=== PATIENT | female | born 1975 | race Caucasian/White ===

== ENCOUNTER 2018-08-01 13:09 | Emergency (ER) | payer SELFPAY ==
[2018-08-01 13:09] VITALS: BP 215/129; PULSE 86; RESP 18; TEMP 36.3; O2SAT 97; BMI 49.4
[2018-08-01 14:46] VITALS: BP 212/108; PULSE 82; RESP 18; O2SAT 98
--- NOTE | 2018-08-01 14:49 | EKG12_ITS ---
Test Reason : HTN Blood Pressure : / mmHG Vent. Rate : 086 BPM Atrial Rate : 086 BPM P-R Int : 152 ms QRS Dur : 096 ms QT Int : 388 ms P-R-T Axes : 041 027 059 degrees QTc Int : 464 ms Normal sinus rhythm Normal ECG Confirmed by SUSAN RIVAS ([id number]), manuscript editor NIDA ROA ([id number]) on 08/03/2018 10:55:00 AM Referred By: MELINDA Confirmed By:SUSAN RIVAS
--- NOTE | 2018-08-01 14:50 | ED.VIS.GEN ---
History of Present Illness Chief Complaint: Hypertension Informant: Patient Onset: Month(s) Timing: Continuous Quality: High blood pressure with intermittent headache Location: Global Current Severity: Moderate - Blood pressure is elevated. Headache has resolved. Maximum Severity: Moderate Worsened by: Inability to purchase medication Relieved by: Nothing Associated Symptoms: Intermittent headache and nocturia Narrative: Patient is a 42-year-old woman who has not seen a physician in 1.5 years. She presents because of headache this morning. She went to the urgent care and her blood pressure was elevated. She has not taken any medication for greater than 1 year. She reports history of hypertension and borderline diabetes . She denies headache presently. She denies blurred vision, loss of vision or change in vision. She denies ringing or ears, decreased hearing or ear pain. She denies problems with speech or swallowing. She denies chest pain, dyspnea, dyspnea exertion, orthopnea or PND. She denies nausea, vomiting diarrhea. She denies paresthesia, anesthesia or motor weakness. She denies problems with balance or walking. - Past Medical History (1) History of hypertension Status: Acute (2) History of diabetes mellitus Status: Acute Past Medical History - Allergies and Home Meds Allergies/Adverse Reactions: Allergies No Known Allergies Allergy (Verified 08/01/18 13:11) Primary Care Physician: Care Physician,No Primary [Primary Care Provider] - Prior records reviewed: No Surgical History: noncontributory Lives: Alone Smoking Status: Former smoker Alcohol: None Drugs: None Review of Systems General: Denies: Chills, Fever, Malaise, Subjective, Sweats Eyes: Denies: Visual changes - bilaterally, Diplopia ENT: Denies: Bilateral ear pain, Rhinorrhea, Sore throat Cardiovascular: Denies: Chest pain, Palpitations Respiratory: Denies: Dyspnea, Cough, Dyspnea on exertion Gastrointestinal: Denies: Abdominal pain, Nausea, Vomiting, Diarrhea, Melena, Hematochezia Genitourinary: Reports: - - Patient reports nocturia. Denies: Dysuria, Hematuria, Frequency, - Musculoskeletal: Denies: Back pain, Extremity Pain Skin: Denies: Rash, Wounds Neurological: Reports: Headache. Denies: Weakness, Parasthesia, Numbness, -, - Endocrine: Denies: Polyuria, Polydipsia Hematologic: Denies: Easy bruising, Easy bleeding Allergy: Denies: Uticaria Physical Exam Vital Signs/Narrative: Vital Signs Temp Pulse Resp BP Pulse Ox 08/01/18 14:46 82 18 212/108 H 98 08/01/18 13:09 97.3 F L 86 18 215/129 H 97 Inital Vital Signs reviewed: Yes General: Well nourished, Well developed, Obese, No Acute Distress Head: Normocephalic, Atraumatic Eyes: Perrl, EOMI. Negative for: Pale conjunctiva, Scleral icterus, - - Funduscopic exam reveals normal cup-to-disc ratio. Unable to determine if she has papilledema. There are changes with AV nicking consistent with uncontrolled hypertension. ENT: Moist mucous membranes, No rhinorrhea Neck: Supple, Nontender Cardiovascular: Regular rate, Regular rhythm, No murmurs, Normal S1, Normal S2 Respiratory: No distress, CTA bilaterally, Chest nontender Abdomen: Soft, Nontender, Nondistended, Normal bowel sounds, No masses Back: Nontender, Normal Inspection. Negative for: CVA tenderness Extremities: Nontender, No edema Skin: Normal color, No rash Neurological: Alert, Oriented x3, Cranial nerves II-XII grossly intact, Normal Strength, Normal Sensation, Normal Gait Psychological: Normal affect, Normal Mood Diagnostic/Tx/Re-eval Laboratory Results 08/01/18 08/01/18 08/01/18 15:04 15:04 15:27 WBC 8.8 RBC 4.69 Hgb 14.0 Hct 42.4 MCV 90.4 MCH 29.9 MCHC 33.0 RDW 13.1 RDW Differential 42.5 Plt Count 260 MPV 10.2 Immature Gran % (Auto) 0.200 Neut % (Auto) 64.2 Lymph % (Auto) 26.8 Starke % (Auto) 6.7 Eos % (Auto) 1.6 Baso % (Auto) 0.5 Absolute Neuts (auto) 5.6 Absolute Lymphs (auto) 2.35 Total Counted Not Reportable Sodium 137 Potassium 3.8 Chloride 107 Carbon Dioxide 28.0 Anion Gap 2 L BUN 9 Creatinine 0.80 Estim Creat Clear Calc 94.76 Est GFR (MDRD) Af Amer 101 Est GFR (MDRD) Non-Af 83 BUN/Creatinine Ratio 11.3 Glucose 175 H Calcium 8.4 L Urine Color Yellow Urine Clarity Clear Urine pH 5.0 Ur Specific [place] 1.025 Urine Protein 30 H Urine Glucose (UA) Normal Urine Ketones 5 H Urine Occult Blood 50 H Urine Nitrite Negative Urine Bilirubin Negative Urine Urobilinogen 1 H Ur Leukocyte Esterase 25 H - Rhythm Strip Rhythm Strip: Sinus Rhythm Rate: 82 Ectopy: None - EKG Initial EKG Interpretation: Sinus Rhythm - Ventricular rate is 86. OK interval, Q jew, QT interval and axis are normal. The EKG is normal. - Medical Decision Making Patient with markedly elevated blood pressure secondary to inability to obtain medication. She is presently asymptomatic. Will treat with oral meds to lower blood pressure by 10-15%. Since there are funduscopic changes consistent with uncontrolled hypertension will obtain EKG, appropriate blood work and urinalysis to assess for endorgan injury. EKG was obtained to assess for hypertrophy which would be evidence of endorgan injury. Blood pressure at 1550 is 190/104. This is approximately a 10% decline. There is evidence of endorgan injury. Blood sugar is elevated 175. Plan is to discharge with prescription for a blood pressure and elevated blood sugar. Since patient is not have a doctor and is insured Dr. Herrera was contacted to assure follow-up. ED Disposition - Plan for ED Patient: Disposition: Home or Assisted Living Diagnosis: Accelerated essential hypertension, New onset type 2 diabetes mellitus Instructions: ED Hypertension New Begin Tx Prescriptions: Lisinopril/Hydrochlorothiazide [Lisinopril-Hctz 10-12.5 mg Tab] 1 each PO DAILY #30 tablet Metformin HCl 500 mg PO DAILY #30 tablet Referrals: Care Physician,No Primary [Primary Care Provider] - Magdalena Wright DO [STAFF PHYSICIAN] - 1 Week Additional Instructions: Your prescription was sent to [facility] pharmacy located in [place] your designated pharmacy of choice.
--- NOTE | 2018-08-01 15:08 | CASEMGMT ---
Case Management Progress Note: This jingle writer informed by primary nurse that patient has H/o HTN and presents to ED with Elevated BP, lost her job and has not taken her BP medication for one year, asking for CM medication assistance. CM introduced self to patient and patient agreed to discuss issue. States that her and her boyfriend had both lost their jobs at the same time and did not have medical coverage. 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 CM did provide patient Medication Coupon Cards and explained how they work. Patient denies living in [facility] and therefore would not qualify for [employer] or [facility], CM also educated patient on if ever needing assistance can try [employer] to see if they assist. Primary nurse at bedside and aware of discussion, no other needs identified at this time. Marah Foster RNCM
[2018-08-01 15:19] LABS: Absolute Lymphocyte Count 2.35 X10^3/ul (0.83-4.51); Absolute Neutrophil Count 5.6 X10^3/uL (2.0-7.7); Basophil# 0.04 X10^3/uL; Basophil% 0.5 % (0-1); Eosinophil# 0.14 X10^3/uL; Eosinophils% 1.6 % (0-5); Hematocrit 42.4 % (37-47); Lymphocyte # 2.35 X10^3/ul (4.0); Lymphocyte % 26.8 % (19-41); Mean Corpuscular Hgb 29.9 pg (27.0-32.0); Mean Corpuscular Volume 90.4 fL (81-99); Mean Platelet Vol. 10.2 fl (6.2-12.0); Monocyte# 0.59 X10^3/uL; Monocyte% 6.7 % (0-10); Neutrophil # 5.63 X10^3/uL (2.7-7.7); Neutrophil % 64.2 % (47-70); Platelet Count 260 K/mm3 (150-450); RBC Distribution Width CV 13.1 % (11.6-14.6); RBC Distribution Width SD 42.5 fl (35.1-43.9); Red Blood Count 4.69 M/mm3 (4.2-5.4); White Blood Count 8.8 K/mm3 (4.4-11.0)
[2018-08-01] MEDS: cloNIDine HCl 0.2 MG Tablet PO (15:21)
[2018-08-01 15:28] LABS: Red Blood Cells-Urine 0 SEEN /hpf (0-5)
[2018-08-01 15:28] LABS: Anion Gap 2 (5-15); BUN 9 mg/dL (7-18); BUN/Creat Ratio 11.3 RATIO (10-20); Calcium,Total 8.4 mg/dL (8.5-10.1); Chloride 107 mmol/L (98-107); EST Glomerular Filtration Rate 83 mL/min (>60); Est Glom Filt Rate - Afr Amer 101 mL/min (>60); Estimated Creatinine Clearance 94.76 ml/min; Glucose 175 mg/dL (74-106); Potassium 3.8 mmol/L (3.5-5.1); Sodium Level 137 mmol/L (136-145)
[2018-08-01 15:29] LABS: POSITIVE COUNT NO; POSITIVE DIFFERENTIAL NO; POSITIVE MORPHOLOGY NO
[2018-08-01 15:44] LABS: Color, Urine Yellow (Yellow); Glucose, Dipstick Normal (Normal); Ketone-Dipstick 5 mg/dl (Negative); Leukocyte Esterase-Dipstick 25 /ul (Negative); Nitrite-Dipstick Negative (Negative); Occult Blood-Urine 50 /ul (Negative); Protein-Dipstick 30 mg/dl (Negative); Specific Gravity, Urine 1.025 (1.002-1.030); Urine Bilirubin Dipstick Negative (Negative); Urine Clarity Clear (Clear); Urine Urobilinogen 1 mg/dl (Normal)
[2018-08-01 16:09] VITALS: BP 180/11; PULSE 81; RESP 20
[2018-08-01 16:39] LABS: Bacteria 1+ /hpf (None Seen); Mucous, Urine 1+ /hpf (<or=2+); Squamous Epithelial Cells - UA 0-5 SEEN /hpf (5-10)
[2018-08-01 16:40] LABS: White Blood Cells 0-5 SEEN /hpf (0-5)
== END 2018-08-01 16:11 | disposition home or self-care (01) ==
PROVIDERS: Emergency Provider Emergency Medicine
DX: I10 Essential (primary) hypertension (principal); E11.9 Type 2 diabetes mellitus without complications; R35.1 Nocturia; E66.9 Obesity, unspecified; Z79.84 Long term (current) use of oral hypoglycemic drugs; Z79.899 Other long term (current) drug therapy; Z87.891 Personal history of nicotine dependence
CPT/HCPCS: 80048; 81001; 85025; 93005; 99284; A4216